=== PATIENT | female | born 1975 | race Two or more races ===

== ENCOUNTER 2017-10-21 08:00 | Inpatient (IN) | payer BC, OTHER ==
[2017-10-19 16:39] VITALS: BMI 22.6
[2017-10-22] MEDS ORDERED: SUCCINYLCHOLINE CHLORIDE 200 MG/10 ML VIAL ONE (07:12)
[2017-10-22] MEDS ORDERED: LIDOCAINE HCL/PF 2% SDV 5ML VIAL ONE (07:12)
[2017-10-22] MEDS ORDERED: PROPOFOL 20 ML ONE ×2 (07:12)
[2017-10-22] MEDS ORDERED: ROCURONIUM BROMIDE 50 MG/5 ML VIAL ONE (07:12)
[2017-10-22] MEDS ORDERED: DEXAMETHASONE SOD PHOSPHATE 4 MG/1 ML VIAL ONE (07:12)
[2017-10-22] MEDS ORDERED: ROPIVACAINE HCL 0.5% 30ML VIAL ONE (07:14)
[2017-10-22] MEDS ORDERED: MIDAZOLAM HCL 2 MG/2 ML SINGLE DOSE VIAL ONE ×2 (07:14)
[2017-10-22] MEDS ORDERED: VASOPRESSIN 20 UNITS/ML VIAL IV ONE (07:15)
[2017-10-22] MEDS ORDERED: DEXAMETHASONE SOD PHOSPHATE/PF 10 MG/ML SDV ONE (07:16)
[2017-10-22] MEDS ORDERED: oxyCODONE HCL 5 MG TABLET PO PRN ×3 (07:59→13:32)
[2017-10-22] MEDS ORDERED: DESFLURANE GAS 240 ML BOTTLE IH ONE (08:12)
[2017-10-22] MEDS ORDERED: ACETAMINOPHEN INJECTION 100 ML IVPB ONE (08:13)
--- NOTE | 2017-10-22 08:13 | HP ---
History & Physical Update - History History: No Change - Physical Physical: No Change - Assessment Assessment: No Change - Plan Plan: No Change
--- NOTE | 2017-10-22 08:14 | OP ---
Operative Note - Note: Operative Date: 10/22/17 Pre-Operative Diagnosis: Leiomyomatous Uterus. Ovarian Cyst Post-Operative Diagnosis: Same as Pre-op Surgeon: Lakeshia Arenas [employer] Special [employer] Teacher: Josefa Cisneros Anesthesia: General Operative Report Dictated: Yes
[2017-10-22] MEDS ORDERED: DEXTROSE 5%-LACTATED RINGERS 1,000 ML IV SCH (08:15)
[2017-10-22] MEDS ORDERED: ceFAZolin SODIUM 1 GM VIAL IVPB ONE (08:36)
[2017-10-22] MEDS ORDERED: GLYCOPYRROLATE 0.2 MG/1 ML VIAL ONE (09:07)
[2017-10-22] MEDS ORDERED: NEOSTIGMINE METHYLSULFATE 0.5 MG/ML - 10 ML MDV ONE (09:07)
[2017-10-22] MEDS ORDERED: PROMETHAZINE HCL 25 MG/1 ML VIAL IVPB PRN (09:49)
[2017-10-22] MEDS ORDERED: ONDANSETRON 4 MG/2 ML VIAL IVPUSH PRN ×2 (09:49)
[2017-10-22] MEDS ORDERED: PROMETHAZINE HCL 25 MG/1 ML VIAL IVPUSH PRN (09:49)
[2017-10-22] MEDS ORDERED: HYDROmorphone *PCA* 10MG/50ML DISP.SYRIN PCA SCH (10:00)
[2017-10-22] MEDS ORDERED: LACTATED RINGERS SOLUTION 1,000 ML IV SCH (10:00)
[2017-10-22] MEDS ORDERED: HYDROmorphone *PCA* 10MG/50ML DISP.SYRIN PCA ONE (10:15)
--- NOTE | 2017-10-22 11:50 | OP ---
DATE OF OPERATION: 10/22/2017 PREOPERATIVE DIAGNOSES: Leiomyomatous uterus and ovarian cyst. OPERATIONS: Abdominal myomectomy and right ovarian cystectomy. POSTOPERATIVE DIAGNOSES: Leiomyomatous uterus and right ovarian cyst. SURGEON: Lakeshia Arenas MD ANESTHESIA: General. PROCEDURE: The patient was taken to the operating room, placed in supine position, and prepped and draped in the usual sterile fashion. A timeout was performed in accordance with hospital regulation. A Pfannenstiel skin incision was made with a scalpel. Cautery was then used to go through the layers of abdominal wall to fascia. The fascia was cut in the midline and cautery was then used to open the fascia in the following fashion. A Adrienne was then used to bluntly and sharply dissect the rectus muscle off the fascia. Muscle split in the midline. Peritoneal cavity was then entered and carried up and downward. With the bowels packed out of the operative field, the leiomyomatous uterus was exteriorized. Multiple myomas were seen both anteriorly and posteriorly. A pedunculated myoma was seen at the fundus. Pitressin was then infiltrated into the serosa of the uterus where myomas were located. Cautery was then used to cut onto and remove the pedunculated myoma. Posteriorly, three incisions were then made to enucleate the myomas which were approximately 3 cm in size. Myomas were submitted. Anteriorly, multiple myomas were removed with a single incision and at the fundus another incision was made and another myoma was enucleated. Approximately ten myomas were removed and incisions were then closed using in the muscle intramural layer 0 Vicryl suture and a V-Loc suture was then used anteriorly on the serosa. Other incisions were then closed using 0 Vicryl suture in a baseball stitch. Hemostasis was achieved. The Interceed was then placed anteriorly and posteriorly. Attention was then drawn to the right ovary where a 3-cm ovarian cyst was seen. Cautery was then used to open the cyst and cyst wall was then exteriorized and submitted to Pathology. Cauterization of the ovary was then done. Hemostasis was achieved. Abdominal cavity cleaned with clean laparotomy pads. Tourniquet had been placed in the beginning of the case and then was removed. Cauterization of the any bleeding was done. Peritoneum was then closed, after abdominal sweep done and all count was noted to be normal. Peritoneum closed using 0 Vicryl suture in continuous stitch. Muscle was approximated midline using 0 Vicryl suture. Fascia was then closed using 0 Vicryl suture in two parts. The skin was then closed using 3-0 Vicryl in subcuticular fashion. The wounds were washed and dressed. The patient tolerated the procedure well. Estimated blood loss 50 mL. LAKESHIA ARENAS M.D. [id number] MTDD
[2017-10-22] MEDS ORDERED: IBUPROFEN 800 MG/8 ML IJ IVPB ONE (13:42)
[2017-10-22] MEDS: CEFAZOLIN 1 GM PUSH 1 GM/10 ML DISP.SYRIN IVPUSH SCH (17:10)
[2017-10-23] MEDS: CEFAZOLIN 1 GM PUSH 1 GM/10 ML DISP.SYRIN IVPUSH SCH (01:23)
--- NOTE | 2017-10-23 07:33 | PN ---
Progress Note (SOAP) - Subjective Chief Complaint: Doing well - Current Medications Current Medications: Active Medications Enoxaparin Sodium (Lovenox -) 40 mg SQ DAILY CHARLETTE Fentanyl (Sublimaze Injection -) 50 mcg IVPUSH [id number] PRN PRN Reason: PAIN Hydromorphone HCl (Dilaudid Employment And Claims Aide -) 10 mg PRIMARY SCHOOL PRINCIPAL PRIMARY SCHOOL PRINCIPAL CHARLETTE PRN Reason: Protocol Stop: 10/29/17 09:50 Dextrose/Lactated Ringer's (D5-Lr -) 1,000 mls @ 125 mls/hr IV ASDIR CHARLETTE Lactated Ringer's (Lactated Ringers Solution) 1,000 mls @ 125 mls/hr IV ASDIR CHARLETTE Ibuprofen (Caldolor Injection -) 800 mg IVPB Q8H PRN PRN Reason: PAIN SCALE < 5 Last Admin: 10/22/17 13:45 Dose: 800 mg Ondansetron HCl (Zofran Injection) 4 mg IVPUSH Q4H PRN PRN Reason: NAUSEA AND/OR VOMITING Oxycodone HCl (Roxicodone -) 5 mg PO Q4H PRN PRN Reason: PAIN SCALE < 5 Oxycodone HCl (Roxicodone -) 10 mg PO Q4H PRN PRN Reason: PAIN SCALE > 6 Promethazine HCl (Phenergan Injection -) 12.5 mg IVPUSH Q6H PRN PRN Reason: NAUSEA-FOR RESCUE AFTER 15 MIN - Objective Vital Signs: Vital Signs Temperature 97.9 F 10/23/17 06:00 Pulse Rate 69 10/23/17 06:00 Respiratory Rate 18 10/23/17 06:00 Blood Pressure 112/60 10/23/17 06:00 O2 Sat by Pulse Oximetry (%) 100 10/22/17 21:00 Constitutional: Yes: Well Nourished, No Distress Cardiovascular: Yes: WNL Respiratory: Yes: WNL Gastrointestinal: Yes: WNL, Normal Bowel Sounds Breast(s): Yes: WNL Musculoskeletal: Yes: WNL Extremities: Yes: WNL Problem List - Problems (1) H/O myomectomy Code(s): Z98.890 - OTHER SPECIFIED POSTPROCEDURAL STATES Assessment/Plan SP <yomectomy POD1 Plan DC home if stable RTO 1 week
[2017-10-23 08:08] LABS: BASO % 0.5 % (0-2.0); EOS % 0.2 % (0-4.5); HEMATOCRIT 27.6 % (32.4-45.2); LYMPH % 17.3 % (8-40); MCH 25.9 pg (25.7-33.7); MCHC 32.8 g/dl (32.0-36.0); MEAN CELL VOLUME 79.1 fl (80-96); MEAN PLT VOLUME 9.8 fl (7.5-11.1); MONO % 9.3 % (3.8-10.2); NEUT % 72.7 % (42.8-82.8); PLATELET COUNT 147 K/MM3 (134-434); RBC 3.49 M/mm3 (3.60-5.2); RDW 15.9 % (11.6-15.6); WHITE BLOOD COUNT 9.5 K/mm3 (4.0-10.0)
--- NOTE | 2017-10-23 08:46 | PN ---
Progress Note (short form) - Note Progress Note: POD #1 - s/p abdominal myomectomy under general anesthesia with bilateral TAP blocks and dilaudid SPINNING DOFFER for postop pain management. VSS. Pt. doing well, sitting up comfortably in bed eating breakfast. No complaints. Good pain control. SPINNING DOFFER discontinued and oxycodone ordered as per garnett machine operator helper. No apparent anesthetic complications noted. Continue current care.
[2017-10-23 08:53] LABS: ANION GAP 5 (8-16); BLOOD UREA NITROGEN 10 mg/dL (7-18); CALCIUM 7.6 mg/dL (8.5-10.1); CHLORIDE 107 mmol/L (98-107); CO2 28 mmol/L (21-32); GLUCOSE,RANDOM 89 mg/dL (74-106); POTASSIUM 4.2 mmol/L (3.5-5.1); SODIUM 140 mmol/L (136-145)
[2017-10-23 08:55] LABS: CREATININE 0.6 mg/dL (0.55-1.02)
[2017-10-23] MEDS ORDERED: IBUPROFEN 800 MG/8 ML IJ IVPB PRN (10:00)
[2017-10-23] MEDS: ENOXAPARIN NA (PORCINE) 40 MG/0.4 ML DISP.SYRIN SQ SCH (10:02)
[2017-10-23] MEDS ORDERED: oxyCODONE HCL 5 MG TABLET PO PRN (12:00)
[2017-10-23 12:38] LABS: URINE APPEARANCE CLEAR; URINE BILIRUBIN NEGATIVE (NEGATIVE); URINE BLOOD NEGATIVE (NEGATIVE); URINE COLOR YELLOW; URINE GLUCOSE (UA) NEGATIVE (NEGATIVE); URINE KETONE NEGATIVE (NEGATIVE); URINE LEUK ESTERASE NEGATIVE (NEGATIVE); URINE NITRITE NEGATIVE (NEGATIVE); URINE PROTEIN NEGATIVE (NEGATIVE); URINE UROBILINOGEN NEGATIVE mg/dL (0.2-1.0)
[2017-10-23] MEDS ORDERED: PCA PUMP KEY 1 EACH EACH ONE ×2 (13:12→13:29)
[2017-10-23] MEDS: ACETAMINOPHEN 325 MG TABLET (FP) PO PRN ×2 (13:17→18:06)
[2017-10-23] MEDS: oxyCODONE HCL 5 MG TABLET PO PRN ×3 (13:18→22:37)
[2017-10-23] MEDS: SIMETHICONE 80 MG TAB.CHEW (FP) PO PRN ×3 (13:19→22:36)
[2017-10-23] MEDS: IBUPROFEN 600 MG TABLET (FP) PO PRN (22:37)
[2017-10-24] MEDS: IBUPROFEN 600 MG TABLET (FP) PO PRN (06:27)
[2017-10-24] MEDS: SIMETHICONE 80 MG TAB.CHEW (FP) PO PRN (06:27)
[2017-10-24] MEDS: oxyCODONE HCL 5 MG TABLET PO PRN (06:29)
[2017-10-24] MEDS: ENOXAPARIN NA (PORCINE) 40 MG/0.4 ML DISP.SYRIN SQ SCH (09:43)
[2017-10-24 09:55] VITALS: BP 121/79; PULSE 72; TEMP 97.2
--- NOTE | 2017-10-24 11:08 | DS ---
Physical Examination Vital Signs: Vital Signs Temperature 97.2 F L 10/24/17 09:54 Pulse Rate 72 10/24/17 09:54 Respiratory Rate 20 10/24/17 09:54 Blood Pressure 121/79 10/24/17 09:54 O2 Sat by Pulse Oximetry (%) 99 10/23/17 21:00 Constitutional: Yes: Well Nourished, No Distress, Calm Eyes: Yes: Conjunctiva Clear, EOM Intact HENT: Yes: Atraumatic, Normocephalic Neck: Yes: Supple, Trachea Midline Cardiovascular: Yes: Regular Rate and Rhythm Respiratory: Yes: Regular, CTA Bilaterally Gastrointestinal: Yes: Normal Bowel Sounds, Soft Extremities: Yes: WNL Edema: No Wound/Incision: Yes: Clean/Dry, Well Approximated Neurological: Yes: Alert, Oriented Psychiatric: Yes: Alert, Oriented Labs: CBC, BMP 10/23/17 06:20 10/23/17 06:20 Discharge Summary Reason For Visit: LEIOMYOMA OF UTERUS Current Active Problems H/O myomectomy (Acute) Procedures: Principal: Abdominal Myomectomy Hospital Course: Pt admitted on 10/22/17 for scheduled abdominal myomectomy. Procedure was uncomplicated (see operative report for full details of procedure). The patient underwent an uncomplicated post op course and on post op day 2 was eating regular diet, ambulating, voiding, passing flatus. Patient was discharged home in stable condition on post operative day 2. Condition: Good - Instructions Diet, Activity, Other Instructions: Dr. Lakeshia Arenas Statistician Theoretical discharge instructions Physical activity Resume your normal everyday activity as tolerated no heavy lifting or exercise until seen by your surgeon. You may walk unlimited danita of and climb stairs. You may resume driving the car when you feel safe and comfortable behind the wheel. No sexual activity as instructed by Dr. Arenas. Wound care If there are tapes on the skin under the out of bandage leave them in place. They will peel off in the next 7 to 10 days. Do Not Peel them off. You may shower the day after surgery. If there are tapes present on the skin, you may shower over them. Diet There are no dietary restrictions. Eat healthy, high-fiber foods. Drink 6 to 8 glasses of liquid each day. This will assist in keeping your bowels regular. Pain management You may take Tylenol or acetaminophen or Ibuprofen (for example, Motrin, Advil etc.) for mild pain, if any prescription pain medication is sent to your pharmacy please take for moderate to severe pain. Call Dr. Arenas for any of the following: Severe pain not relieved by medication Fever of 101 or higher Excessive bleeding or drainage on dressing Inability to urinate Call the office at [phone] for an appointment in seven days. Referrals: Lakeshia Arenas MD [Staff Physician] - Disposition: HOME - Home Medications Comprehensive Discharge Medication List: Ambulatory Orders Flexeril 10 mg 10 mg PO HS PRN 10/19/17 Ibuprofen [Motrin -] 600 mg PO QID PRN #28 tablet 10/22/17 Oxycodone HCl/Acetaminophen [Percocet 5-325 mg Tablet -] 1 tab PO Q4H #20 tablet MDD 6 10/22/17
--- NOTE | 2017-10-25 16:09 | PATH ---
Surgical Pathology Report Patient Name: HARESH OLVERA [facility]. Rec. #: [id number] /Age/Gender: 1975 (Age: 42) / F Account: [id number] Location: [facility] OBS/PENSION AGENT Taken: 10/22/2017 Received: 10/22/2017 Reported: 10/25/2017 Physicians: Lakeshia Arenas M.D. Specimen(s) Received A: LEIOMYOMAS OF UTERUS B: RIGHT OVARIAN CYST WALL Clinical History Leiomyoma of uterus, right ovarian cyst Final Diagnosis A. UTERUS, MYOMECTOMY: FRAGMENTS OF BENIGN SMOOTH MUSCLE CONSISTENT WITH LEIOMYOMA(TA). B. OVARY, RIGHT, CYST WALL, CYSTECTOMY: CONSISTENT WITH FOLLICULAR CYST. Electronically Signed Nanci Bingham M.D. Gross Description A. Received in formalin labeled "leiomyomas of uterus," is an 88 g aggregate of 10 hernandez, irregular, rubbery nodules, consistent with fibroids. The fibroids range from 1.2-3.8 cm in greatest dimension. Sectioning reveals hernandez, firm to rubbery parenchyma with whorled architecture. No areas of hemorrhage or necrosis are identified. Big Data Software Engineer sections are submitted in 6 cassettes. B. Received in formalin labeled "right ovarian cyst wall," is a 1.4 x 1.2 x 0.2 cm aggregate of hernandez pink fragments of soft tissue, possibly consistent with portions of a cyst wall. The specimen is entirely submitted in one cassette. DL/10/22/2017 saudi10/22/2017
== END 2017-10-24 12:27 | disposition home or self-care (01) | DRG 743 ==
LOC: EDSTATUS 08:00 → JSAMEDAYSX 10-22 05:04 → J3W 10-22 16:09
PROVIDERS: ADMIT Obstetrics & Gynecology; ATTEND Obstetrics & Gynecology
PROC: 0UB00ZZ Excision of Right Ovary, Open Approach (ICD-10-PCS; 2017-10-22)
PROC: 0UB90ZZ Excision of Uterus, Open Approach (ICD-10-PCS; principal; 2017-10-22 07:30)
DX: D25.9 Leiomyoma of uterus, unspecified (principal); N83.209 Unspecified ovarian cyst, unspecified side
CPT/HCPCS: 36415; 80048; 81003; 85025; 86850; 86900; 86901; 87086; 88304-TC; 88305-TC; 94010; 94760

== ENCOUNTER 2019-01-17 17:00 | Emergency (ER) | payer BC, OTHER ==
[2019-01-17 17:15] VITALS: BP 136/82; PULSE 57; TEMP 98.3; BMI 24.2
[2019-01-17] MEDS ORDERED: ACETAMINOPHEN 325 MG TABLET (FP) PO ONE (17:38)
[2019-01-17] MEDS ORDERED: ACETAMINOPHEN 325 MG TABLET (FP) ONE (17:41)
--- NOTE | 2019-01-17 18:14 | PDOC ---
History of Present Illness - General Chief Complaint: Pain Stated Complaint: PAIN Time Seen by Provider: 01/17/19 17:19 History Source: Patient Exam Limitations: No Limitations Past History - Travel Traveled outside of the country in the last 30 days: No Close contact w/someone who was outside of country & ill: No - Past Medical History Allergies/Adverse Reactions: Allergies Allergy/AdvReac Type Severity Reaction Status Date / Time ketorolac Allergy Severe Rash Verified 01/17/19 17:15 Home Medications: Ambulatory Orders Flexeril 10 mg 10 mg PO HS PRN 10/19/17 Ibuprofen [Motrin -] 600 mg PO QID PRN #28 tablet 10/22/17 Oxycodone HCl/Acetaminophen [Percocet 5-325 mg Tablet -] 1 tab PO Q4H #20 tablet MDD 6 10/22/17 Ibuprofen 600 mg PO Q6H #30 tablet 01/17/19 Anemia: Yes Asthma: No Cancer: No Cardiac Disorders: No CVA: No COPD: No CHF: No Dementia: No Diabetes: No GI Disorders: No Disorders: No HTN: No Hypercholesterolemia: No Liver Disease: No Seizures: No Thyroid Disease: No - Surgical History Abdominal Surgery: No Appendectomy: No Cardiac Surgery: No Cholecystectomy: No Lung Surgery: No Neurologic Surgery: No Orthopedic Surgery: Yes (lumbar discectomy 1997) - Immunization History Immunization Up to Date: Yes - Suicide/Smoking/Psychosocial Hx Smoking Status: No Smoking History: Never smoked Have you smoked in the past 12 months: No Number of Cigarettes Smoked Daily: 0 Information on smoking cessation initiated: No Hx Alcohol Use: No Drug/Substance Use Hx: No Substance Use Type: None Hx Substance Use Treatment: No Review of Systems - Review of Systems Able to Perform ROS?: Yes Comments:: 01/17/19 17:36 CONSTITUTIONAL: Absent: fever, chills, diaphoresis, generalized weakness, malaise, loss of appetite HEENT: Absent: rhinorrhea, nasal congestion, throat pain, throat swelling, difficulty swallowing, mouth swelling, ear pain, eye pain, visual Changes CARDIOVASCULAR: Absent: chest pain, loss of consciousness, palpitations, irregular heart rate, peripheral edema MUSCULOSKELETAL: Present: R shoulder pain Absent: myalgia, arthralgia, joint swelling SKIN: Absent: rash, itching, pallor NEUROLOGIC: Absent: headache, focal weakness or paresthesias, dizziness, unsteady gait, seizure, mental status changes, bladder or bowel incontinence PSYCHIATRIC: Absent: anxiety, depression, suicidal or homicidal ideation, hallucinations. Is the patient limited Chinese proficient: No *Physical Exam - Vital Signs Last Vital Signs Temp Pulse Resp BP Pulse Ox 98.3 F 57 L 18 136/82 99 01/17/19 17:12 01/17/19 17:12 01/17/19 17:12 01/17/19 17:12 01/17/19 17:12 - Physical Exam Comments: 01/17/19 17:39 GENERAL: Well developed, well nourished. Awake and alert. No acute distress. HEENT: Normocephalic, atraumatic. PERRLA, EOMI. No conjunctival pallor. Sclera are non- icteric. Moist mucous membranes. Oropharynx is clear. NECK: Supple. Full ROM. No JVD. Carotid pulses 2+ and symmetric, without bruits. No thyromegaly. No lymphadenopathy. MUSCULOSKELETAL TTP of the R GH joint. Pain with impingment manuvers. (-) drop arm and empty can testing. Normal range of motion at all other joints. No bony deformities or tenderness. No CVA tenderness. EXTREMITIES: No cyanosis. No clubbing. No edema. No calf tenderness. SKIN: Warm and dry. Normal capillary refill. No rashes. No jaundice. NEUROLOGICAL: Alert, awake, appropriate. Cranial nerves 2-12 intact. No deficits to light touch and temperature in face, upper extremities and lower extremities. No motor deficits in the in face, upper extremities and lower extremities. Normoreflexic in the upper and lower extremities. Normal speech. Toes are down- going bilaterally. Gait is normal without ataxia. PSYCHIATRIC: Cooperative. Good eye contact. Appropriate mood and affect. Medical Decision Making - Medical Decision Making 01/17/19 18:14 The patient is a 43-year-old female with no past medical history who presents to the ER today for right shoulder pain. The patient states that she noticed it started to bother her yesterday and the pain ramped up today. She states that she cannot pressure hair due to the pain. Denies trauma to the arm. Patient is right-hand dominant. Denies numbness and tingling to the extremity and weakness to the affected extremity. A/P: Right shoulder pain On exam pain with impingement maneuvers. Negative drop arm test and empty can test; less suspicious for rotator cuff pathology Wet read of the right shoulder x-rays negative for fracture. Patient treated with Tylenol and the ER. We'll give NSAIDs and orthopedic referral. Discharge home I discussed the physical exam findings, ancillary test results and final diagnoses with the patient. I answered all of the patient's questions. The patient was satisfied with the care received and felt comfortable with the discharge plan and treatment plan. The Patient agrees to follow up with the primary care physician/specialist within 24-72 hours. Return precautions were given. *DC/Admit/Observation/Transfer Diagnosis at time of Disposition: Shoulder impingement Qualifiers: Laterality: right Qualified Code(s): M75.41 - Impingement syndrome of right shoulder - Discharge Dispostion Disposition: HOME Condition at time of disposition: Stable Decision to Admit order: No - Referrals Referrals: Alex Young MD [Staff Physician] - - Patient Instructions Printed Discharge Instructions: Shoulder Tendinopathy Additional Instructions: Your x-ray of her shoulder shows no dislocation or fractured bones. He most likely have an impingement of the nerves and or tendons as discussed Please take Motrin 600 mg every 6 hours for the next week. Gently stretch her shoulder. Please follow up with orthopedics this week. Return to the ER for any new or worsening symptoms. - Post Discharge Activity Forms/Work/School Notes: Back to Work
== END 2019-01-17 18:20 | disposition home or self-care (01) ==
LOC: JERFT 17:00
DX: M75.41 Impingement syndrome of right shoulder (principal)
CPT/HCPCS: 73030-TC-RT-FY; 99281-25

== ENCOUNTER 2019-08-24 15:53 | Emergency (ER) | payer BC, OTHER ==
[2019-08-24 16:02] VITALS: TEMP 98; BMI 24.7
--- NOTE | 2019-08-24 16:03 | PDOC ---
Rapid Medical Evaluation Chief Complaint: Chest Pain Time Seen by Provider: 08/24/19 15:57 Medical Evaluation: Allergies Allergy/AdvReac Type Severity Reaction Status Date / Time ketorolac Allergy Severe Rash Verified 07/30/19 00:20 08/24/19 15:57 I have performed a brief in-person evaluation of this patient. The patient presents with a chief complaint of:chest pain with pressure started ~ 2 hours ago- burning. . Headache x 3 weeks ago seen and released here. , but all same symptoms reoccured today but CP is new. Has MRI scheduled Wednesday for headaches.. Also c/o hematuria yesterday Pertinent physical exam findings: I have ordered the following: Urine ordered / EKG done in triage. The patient will proceed to the ED for further evaluation. 08/24/19 15:59 Discharge Disposition - Diagnosis Headache, Chest pain - Discharge Dispostion Condition at time of disposition: Stable - Referrals - Patient Instructions - Post Discharge Activity
[2019-08-24 16:28] LABS: PH,URINE 7.5 (5.0-8.0); URINE APPEARANCE CLEAR; URINE BILIRUBIN NEGATIVE (NEGATIVE); URINE COLOR YELLOW; URINE GLUCOSE (UA) NEGATIVE (NEGATIVE); URINE KETONE NEGATIVE (NEGATIVE); URINE LEUK ESTERASE NEGATIVE (NEGATIVE); URINE NITRITE NEGATIVE (NEGATIVE); URINE PROTEIN NEGATIVE (NEGATIVE); URINE UROBILINOGEN 0.2 mg/dL (0.2-1.0)
--- NOTE | 2019-08-24 17:22 | PDOC ---
History of Present Illness - General Chief Complaint: Chest Pain Stated Complaint: CHEST PAIN Time Seen by Provider: 08/24/19 15:57 - History of Present Illness Initial Comments: 08/24/19 17:34 44 yo F PMH brain tumor s/p resection in October 2018, fibroids s/p surgery several months ago, recently diagnosed HTN one month ago, R ankle fracture 20 years ago s/p surgery, p/w chest pain. Reports episcopalian of her symptoms early this morning, first N w/o vomiting, then L sided chest pain, 6/10, initially pressure, then "plucking sensation like someone is pulling my skin", now just 5/ 10 pressure. Denies SOB, fevers/chills, constipation. Endorses HAs for the past 2 months, worse over the last two days, and diarrhea for the past 2 days. Complains of urinary frequency up to 10 times a day since her fibroid surgery. MRI planned for tomorrow. Past History - Past Medical History Allergies/Adverse Reactions: Allergies Allergy/AdvReac Type Severity Reaction Status Date / Time ketorolac Allergy Severe Rash Verified 08/24/19 16:02 Home Medications: Ambulatory Orders Amlodipine Besylate [Norvasc -] 2.5 mg PO DAILY 07/30/19 Anemia: Yes Asthma: No Cancer: No Cardiac Disorders: No CVA: No COPD: No CHF: No Dementia: No Diabetes: No GI Disorders: No Disorders: No HTN: Yes Hypercholesterolemia: No Liver Disease: No Seizures: No Thyroid Disease: No - Surgical History Abdominal Surgery: No Appendectomy: No Cardiac Surgery: No Cholecystectomy: No Lung Surgery: No Neurologic Surgery: No Orthopedic Surgery: Yes (lumbar discectomy 1997) - Immunization History Immunization Up to Date: Yes - Psycho Social/Smoking Cessation Hx Smoking Status: No Smoking History: Never smoked Have you smoked in the past 12 months: No Number of Cigarettes Smoked Daily: 0 Hx Alcohol Use: No Drug/Substance Use Hx: No Substance Use Type: None Hx Substance Use Treatment: No Review of Systems - Review of Systems Constitutional: No: Chills, Diaphoresis, Fever HEENTM: No: Recent change in vision, Double Vision, Tinnitus, Hearing Loss, Mouth Pain, Difficulty Swallowing Respiratory: No: Cough, Orthopnea, Shortness of Breath Cardiac (ROS): Yes: Chest Pain. No: Edema, Irregular Heart Rate, Lightheadedness, Palpitations, Syncope, Chest Tightness ABD/GI: Yes: Diarrhea, Nausea. No: Constipated, Vomiting : Yes: Frequency Musculoskeletal: No: Back Pain, Muscle Pain Neurological: Yes: Headache. No: Numbness, Tingling, Weakness *Physical Exam - Vital Signs Last Vital Signs Temp Pulse Resp BP Pulse Ox 98 F 75 18 171/86 H 100 08/24/19 15:54 08/24/19 15:54 08/24/19 15:54 08/24/19 15:54 08/24/19 15:54 - Physical Exam Comments: 08/24/19 17:34 Gen: well-developed, well-nourished, NAD Neuro: AAOX4, CN II-XII intact, FTN intact, EOMI, PERRLA, 5/5 strength, SILT HEENT: atraumatic, normocephalic, dry mucous membranes Neck: trachea midline, supple CV: regular rate, regular rhythm, no murmurs, rubs, or gallops Pulm: CTA b/l, no wheezing Abd: soft, non-distended, non-tender MSK: full ROM, intact pulses Extr: no edema, surgical scar on R ankle Skin: warm, dry ED Treatment Course - LABORATORY CBC & Chemistry Diagram: 08/24/19 17:30 08/24/19 17:30 - ADDITIONAL ORDERS Additional order review: Laboratory Results 08/24/19 08/24/19 16:09 16:09 Urine Color Yellow Urine Appearance Clear Urine pH 7.5 D Ur Specific [place] 1.005 L Urine Protein Negative Urine Glucose (UA) Negative Urine Ketones Negative Urine Blood Negative Urine Nitrite Negative Urine Bilirubin Negative Urine Urobilinogen 0.2 Ur Leukocyte Esterase Negative Urine HCG, Qual Negative - RADIOLOGY Radiology Studies Ordered: Category Date Time Status CHEST PA & LAT [RAD] Stat Radiology 08/24/19 17:20 Ordered Medical Decision Making - Medical Decision Making 08/24/19 17:22 ACS vs MSK pain, outpatient MRI planned for tomorrow. - CBC, CMP, Mg, trop - EKG, CXR - reglan, 1L LR - UA/UC - reassess EKG normal sinus at 67 bpm, incomplete RBBB 08/24/19 18:17 CBC, CMP, trop unconcerning. 08/24/19 19:00 Patient signed out to Dr. Johnson. Discharge - Discharge Information Problems reviewed: Yes Clinical Impression/Diagnosis: Headache Qualifiers: Headache type: unspecified Headache chronicity pattern: unspecified pattern Intractability: not intractable Qualified Code(s): R51 - Headache Chest pain Qualifiers: Chest pain type: unspecified Qualified Code(s): R07.9 - Chest pain, unspecified Condition: Stable Disposition: HOME - Follow up/Referral Referrals: Rukhsana Harding MD [Primary Care Provider] - - Patient Discharge Instructions Patient Printed Discharge Instructions: DI for Atypical Chest Pain Additional Instructions: You were seen in the ER for chest pain. Your labs returned normal. Please make sure to follow up with your primary care provider as soon as possible, in the next 3 days. Be sure to keep your MRI appointment tomorrow. Please return to the ER if you develop weakness, severe headaches, worsening chest pain, or trouble breathing. - Post Discharge Activity
[2019-08-24] MEDS ORDERED: LACTATED RINGERS SOLUTION 1,000 ML/1,000 ML INFUS.BAG IV STA (17:24)
[2019-08-24] MEDS ORDERED: METOCLOPRAMIDE HCL INJECTION 10 MG/2 ML VIAL IVPB ONE (17:24)
[2019-08-24 17:39] VITALS: BP 145/89; PULSE 72
[2019-08-24] MEDS ORDERED: METOCLOPRAMIDE HCL INJECTION 10 MG/2 ML VIAL ONE (17:41)
[2019-08-24 17:44] LABS: BASO % 0.8 % (0-2.0); EOS % 2.6 % (0-4.5); HEMATOCRIT 34.9 % (32.4-45.2); HEMOGLOBIN 11.2 GM/dL (10.7-15.3); LYMPH % 35.2 % (8-40); MCH 24.8 pg (25.7-33.7); MCHC 32.1 g/dl (32.0-36.0); MEAN CELL VOLUME 77.2 fl (80-96); MEAN PLT VOLUME 9.3 fl (7.5-11.1); MONO % 6.5 % (3.8-10.2); NEUT % 54.9 % (42.8-82.8); PLATELET COUNT 176 K/MM3 (134-434); RBC 4.52 M/mm3 (3.60-5.2); RDW 16.8 % (11.6-15.6); WHITE BLOOD COUNT 6.3 K/mm3 (4.0-10.0)
[2019-08-24 18:12] LABS: BILIRUBIN,TOTAL 0.2 mg/dL (0.2-1); BLOOD UREA NITROGEN 9.8 mg/dL (7-18); CREATININE 0.7 mg/dL (0.55-1.3); POTASSIUM 4.4 mmol/L (3.5-5.1); TOT PROT 7.2 g/dl (6.4-8.2)
[2019-08-24 18:16] LABS: PHOSPHOROUS 4.1 mg/dL (2.5-4.9)
--- NOTE | 2019-08-24 18:24 | PDOC ---
Documentation entered by Lauryn Webb SCRIBE, acting as scribe for Finesse Amado MD. Finesse Amado MD: This documentation has been prepared by the Tracey ledbetter Xhesika, SCRIBE, under my direction and personally reviewed by me in its entirety. I confirm that the documentation accurately reflects all work, treatment, procedures, and medical decision making performed by me. Attending Attestation - Resident Resident Name: Jonah Eric - ED Attending Attestation I have performed the following: I have examined & evaluated the patient, The case was reviewed & discussed with the resident, I agree w/resident's findings & plan, Exceptions are as noted - HPI HPI: 08/24/19 17:40 The patient is a 44 year old female with a significant PMH of recently dx HTN, benign scalp soft tissue mass s/p resection, fibroids s/p myomectomy who presents to the emergency department for 3 weeks of headache and atraumatic chest pressure [id number] that started while at work. Patient describes her headache as global, diffuse and throbbing. Pt notes her chest pressure is 8/ 10 in severity, constant, throbbing sensation without associated visionc hange, weakness, numbness/tinglingw/eankess, fever/chills. Pt denies any sob, palpitations or lightheadedness. Patient notes she has been seen by her PMD and neurologist for her chronic headaches and has an MRI tomorrow. Patient denies any family cardiac history. The patient denies fever, chills, cough, nausea, vomiting, diarrhea and constipation. Denies dysuria, frequency, urgency and hematuria. Social denies smoking, etoh abuse, recreational drug use Allergies: NKDA PCP: Rukhsana Posey - Physicial Exam PE: 08/24/19 17:42 GENERAL: The patient is awake, alert, and fully oriented, Nontoxic - in no acute distress. HEAD: Normocephalic, atraumatic. EYES: extraocular movements intact, sclera anicteric, conjunctiva clear. ENT: Normal voice, Moist mucous membranes. NECK: Normal range of motion, supple without lymphadenopathy, JVD, or masses. LUNGS: Breath sounds equal, clear to auscultation bilaterally. No wheezes, no crackles, no rales. HEART: Regular rate and rhythm, normal S1 and S2 without murmur, rub or gallop. ABDOMEN: Soft, nontender, normoactive bowel sounds. No guarding, no rebound. No masses. EXTREMITIES: Normal range of motion, no edema. No clubbing or cyanosis. No cords, erythema, or tenderness. NEUROLOGICAL: No facial asymmetry, Normal speech, normal gait. PSYCH: Normal mood, normal affect. SKIN: Warm, Dry, normal turgor, no rashes or lesions noted. - Medical Decision Making 08/24/19 17:25 ddx - possible migraine headache, unclear cause of cp - unlikely pancretitis, gastirits, acs will ck basic labs analgesia will reassess Heart Score/ECG Review - ECG Impressions Comment:: 08/24/19 18:30 Twelve-lead EKG was performed and reviewed by me. There is normal sinus rhythm with a normal rate. rate of 67 Incomplete rbbb There is normal R wave progression There are no ST or T wave abnormalities.
[2019-08-24] MEDS ORDERED: ACETAMINOPHEN 1000 MG/100 ML VIAL (NON FORMULARY) IVPB ONE (18:30)
[2019-08-24] MEDS ORDERED: ACETAMINOPHEN INJECTION 100 ML IVPB ONE (18:37)
--- NOTE | 2019-08-24 21:11 | PDOC ---
*Physical Exam - Vital Signs Last Vital Signs Temp Pulse Resp BP Pulse Ox 98 F 72 16 145/89 100 08/24/19 15:54 08/24/19 17:38 08/24/19 17:38 08/24/19 17:38 08/24/19 15:54 - Physical Exam Comments: PE: GENERAL: Awake, alert, and fully oriented, in no acute distress HEAD: No signs of trauma, normocephalic, atraumatic EYES: PERRLA, EOMI, sclera anicteric, conjunctiva clear ENT: Auricles normal inspection, hearing grossly normal, nares patent, oropharynx clear without exudates. Moist mucosa NECK: Normal ROM, supple, no lymphadenopathy, JVD, or masses LUNGS: No distress, speaks full sentences, clear to auscultation bilaterally HEART: Regular rate and rhythm, normal S1 and S2, no murmurs, rubs or gallops, peripheral pulses normal and equal bilaterally. ABDOMEN: Soft, nontender, normoactive bowel sounds. No guarding, no rebound. No masses EXTREMITIES : Normal inspection, Normal range of motion, no edema. No clubbing or cyanosis NEUROLOGICAL: Cranial nerves II through XII grossly intact. Normal speech, normal gait, no focal sensorimotor deficits SKIN: Warm, Dry, normal turgor, no rashes or lesions noted ED Treatment Course - LABORATORY CBC & Chemistry Diagram: 08/24/19 17:30 08/24/19 17:30 - ADDITIONAL ORDERS Additional order review: Laboratory Results 08/24/19 08/24/19 08/24/19 17:30 17:30 16:09 Sodium 140 Potassium 4.4 Chloride 108 H Carbon Dioxide 27 Anion Gap 6 L BUN 9.8 Creatinine 0.7 Est GFR (CKD-EPI)AfAm 121.27 Est GFR (CKD-EPI)NonAf 104.64 Random Glucose 90 Calcium 9.0 Phosphorus 4.1 Magnesium 2.0 Total Bilirubin 0.2 AST 14 L ALT 17 Alkaline Phosphatase 53 Creatine Kinase 82 Troponin I < 0.02 Total Protein 7.2 Albumin 4.0 Urine Color Yellow Urine Appearance Clear Urine pH 7.5 D Ur Specific [place] 1.005 L Urine Protein Negative Urine Glucose (UA) Negative Urine Ketones Negative Urine Blood Negative Urine Nitrite Negative Urine Bilirubin Negative Urine Urobilinogen 0.2 Ur Leukocyte Esterase Negative Urine HCG, Qual 08/24/19 16:09 Sodium Potassium Chloride Carbon Dioxide Anion Gap BUN Creatinine Est GFR (CKD-EPI)AfAm Est GFR (CKD-EPI)NonAf Random Glucose Calcium Phosphorus Magnesium Total Bilirubin AST ALT Alkaline Phosphatase Creatine Kinase Troponin I Total Protein Albumin Urine Color Urine Appearance Urine pH Ur Specific [place] Urine Protein Urine Glucose (UA) Urine Ketones Urine Blood Urine Nitrite Urine Bilirubin Urine Urobilinogen Ur Leukocyte Esterase Urine HCG, Qual Negative 08/24/19 17:30 RBC 4.52 MCV 77.2 L MCHC 32.1 RDW 16.8 H MPV 9.3 Neutrophils % 54.9 D Lymphocytes % 35.2 D Monocytes % 6.5 Eosinophils % 2.6 D Basophils % 0.8 - Medications Given in the ED: ED Medications Discontinued Medications Generic Name Dose Route Start Last Admin Trade Name [place]illo PRN Reason Stop Dose Admin Acetaminophen 1,000 mg 08/24/19 18:30 08/24/19 18:40 Ofirmev Injection - IVPB 08/24/19 18:31 1,000 mg ONCE ONE Administration Lactated Ringer's 1,000 ml in 1,000 mls @ 1,000 mls/hr 08/24/19 17:24 17:50 Lactated Ringers Solution IV 08/24/19 18:23 1,000 mls/hr ONCE STA Administration Metoclopramide HCl 10 mg 08/24/19 17:24 08/24/19 17:50 Reglan Injection - IVPB 08/24/19 17:25 10 mg ONCE ONE Administration Medical Decision Making - Medical Decision Making 08/24/19 22:27 44F with hx HTN, brain tumor p/w 5/10 chest pain/tightness since this AM, nausea no vomiting. Symptoms resolved with reglan, ofimev, fluids. She has an already scheduled brain MRI tomorrow morning to further evaluate the source of her headaches. Pending: CXR Discharge home --- CXR reviewed, negative for acute process. Plan for discharge home with close PCP follow up, MRI in AM. Discharge - Discharge Information Problems reviewed: Yes Clinical Impression/Diagnosis: Headache Qualifiers: Headache type: unspecified Headache chronicity pattern: unspecified pattern Intractability: not intractable Qualified Code(s): R51 - Headache Chest pain Qualifiers: Chest pain type: unspecified Qualified Code(s): R07.9 - Chest pain, unspecified Condition: Stable Disposition: HOME - Admission No - Follow up/Referral Referrals: Rukhsana Harding MD [Primary Care Provider] - - Patient Discharge Instructions Patient Printed Discharge Instructions: DI for Atypical Chest Pain Additional Instructions: You were seen in the ER for chest pain. Your labs returned normal. Please make sure to follow up with your primary care provider as soon as possible, in the next 3 days. Be sure to keep your MRI appointment tomorrow. Please return to the ER if you develop weakness, severe headaches, worsening chest pain, or trouble breathing. - Post Discharge Activity
--- NOTE | 2019-08-25 14:01 | EKG ---
Test Reason : Blood Pressure : / mmHG Vent. Rate : 067 BPM Atrial Rate : 067 BPM P-R Int : 156 ms QRS Dur : 096 ms QT Int : 396 ms P-R-T Axes : 056 069 060 degrees QTc Int : 418 ms NORMAL SINUS RHYTHM INCOMPLETE RIGHT BUNDLE BRANCH BLOCK WHEN COMPARED WITH ECG OF 19-OCT-2017 15:58, NO SIGNIFICANT CHANGE WAS FOUND Confirmed by ONEIL SAUCEDO MD ([id number]) on 08/25/2019 2:01:14 PM Referred By: Confirmed By:ONEIL SAUCEDO MD
== END 2019-08-24 21:19 | disposition home or self-care (01) ==
LOC: JER 15:53
PROC: 3E033GC Introduction of Other Therapeutic Substance into Peripheral Vein, Percutaneous Approach (ICD-10-PCS; principal; 2019-08-24)
PROC: 3E033NZ Introduction of Analgesics, Hypnotics, Sedatives into Peripheral Vein, Percutaneous Approach (ICD-10-PCS; 2019-08-24)
DX: R07.9 Chest pain, unspecified (principal); R51 Headache; I10 Essential (primary) hypertension; Z98.890 Other specified postprocedural states; Z88.6 Allergy status to analgesic agent
CPT/HCPCS: 36415; 71046-TC-FY; 80053; 81003; 82550; 83735; 84100; 84484; 84703; 85025; 93005; 93010; 99284-25; J0131

== ENCOUNTER 2021-06-12 10:35 | Emergency (ER) | payer BC, OTHER ==
[2021-06-12 11:07] VITALS: BP 153/101; PULSE 69; TEMP 98.1; BMI 25.0
[2021-06-12] MEDS ORDERED: FAMOTIDINE 20 MG/50 ML IVPB 20 MG/50 ML MG IVPB ONE ×2 (11:56→12:22)
[2021-06-12] MEDS ORDERED: SODIUM CHLORIDE 1,000 ML IV STA (11:56)
[2021-06-12] MEDS ORDERED: MAG HYDROX/AL HYDROX/SIMETH -MYLANTA- ORAL SUSPENSION PO ONE (11:56)
[2021-06-12] MEDS ORDERED: MAG HYDROX/AL HYDROX/SIMETH 30 ML UNIT-DOSE CUP ONE (12:18)
[2021-06-12 12:27] LABS: EOS % 5.2 % (0-4.5); HEMATOCRIT 37.6 % (32.4-45.2); HEMOGLOBIN 12.8 GM/dL (10.7-15.3); LYMPH % 30.9 % (8-40); MCH 27.9 pg (25.7-33.7); MEAN PLT VOLUME 8.7 fl (7.5-11.1); MONO % 7.7 % (3.8-10.2); NEUT % 55.2 % (42.8-82.8); PLATELET COUNT 156 10^3/uL (134-434); RBC 4.59 M/mm3 (3.60-5.2); RDW 15.6 % (11.6-15.6); WHITE BLOOD COUNT 4.9 K/mm3 (4.0-10.0)
[2021-06-12 12:38] LABS: URINE APPEARANCE CLEAR; URINE BILIRUBIN NEGATIVE (NEGATIVE); URINE COLOR YELLOW; URINE GLUCOSE (UA) NEGATIVE (NEGATIVE); URINE KETONE NEGATIVE (NEGATIVE); URINE LEUK ESTERASE NEGATIVE (NEGATIVE); URINE NITRITE NEGATIVE (NEGATIVE); URINE PROTEIN NEGATIVE (NEGATIVE); URINE UROBILINOGEN 0.2 mg/dL (0.2-1.0)
[2021-06-12 12:41] LABS: HCG,QUALITATIVE URINE Negative
[2021-06-12 12:49] LABS: CALCIUM 8.9 mg/dL (8.5-10.1)
[2021-06-12 12:50] LABS: ALBUMIN 3.7 g/dl (3.4-5.0); BLOOD UREA NITROGEN 9.7 mg/dL (7-18)
[2021-06-12 12:53] LABS: CREATININE 0.8 mg/dL (0.55-1.3); TOT PROT 7.2 g/dl (6.4-8.2)
[2021-06-12 13:10] LABS: BILIRUBIN,TOTAL 0.4 mg/dL (0.2-1)
[2021-06-12] MEDS ORDERED: METOCLOPRAMIDE HCL INJECTION 10 MG/2 ML VIAL IVPB ONE (14:02)
[2021-06-12] MEDS ORDERED: ACETAMINOPHEN 1000 MG/100 ML VIAL (NON FORMULARY) IVPB ONE (14:02)
[2021-06-12] MEDS ORDERED: ACETAMINOPHEN INJECTION 100 ML IVPB ONE (14:05)
[2021-06-12] MEDS ORDERED: METOCLOPRAMIDE HCL INJECTION 10 MG/2 ML VIAL ONE (14:05)
== END 2021-06-12 17:05 | disposition home or self-care (01) ==
LOC: JER 10:35 → JERFT 10:35
PROC: 3E0333Z Introduction of Anti-inflammatory into Peripheral Vein, Percutaneous Approach (ICD-10-PCS; principal; 2021-06-12)
PROC: 3E033GC Introduction of Other Therapeutic Substance into Peripheral Vein, Percutaneous Approach (ICD-10-PCS; 2021-06-12)
PROC: 3E033GC Introduction of Other Therapeutic Substance into Peripheral Vein, Percutaneous Approach (ICD-10-PCS; 2021-06-12)
PROC: 3E0337Z Introduction of Electrolytic and Water Balance Substance into Peripheral Vein, Percutaneous Approach (ICD-10-PCS; 2021-06-12)
DX: K21.9 Gastro-esophageal reflux disease without esophagitis (principal)
CPT/HCPCS: 36415; 76705-TC; 80053; 81003; 83690; 84703; 85025; 87086; 99284-25; J0131

== ENCOUNTER 2021-07-23 14:43 | Emergency (ER) | payer BC, OTHER ==
[2021-07-23 14:52] VITALS: TEMP 98.5; BMI 25.8
[2021-07-23] MEDS ORDERED: METOCLOPRAMIDE HCL INJECTION 10 MG/2 ML VIAL IVPUSH ONE (15:47)
[2021-07-23] MEDS ORDERED: SODIUM CHLORIDE 0.9% 500 ML INFUS.BAG IV ONE (15:47)
[2021-07-23] MEDS ORDERED: ACETAMINOPHEN 1000 MG/100 ML VIAL (NON FORMULARY) IVPB ONE (15:47)
[2021-07-23] MEDS ORDERED: ACETAMINOPHEN INJECTION 100 ML IVPB ONE ×2 (16:06→16:11)
[2021-07-23] MEDS ORDERED: METOCLOPRAMIDE HCL INJECTION 10 MG/2 ML VIAL ONE ×2 (16:06→16:11)
[2021-07-23 16:27] LABS: BASO % 0.8 % (0-2.0); EOS % 3.3 % (0-4.5); HEMATOCRIT 37.8 % (32.4-45.2); HEMOGLOBIN 12.9 GM/dL (10.7-15.3); LYMPH % 19.9 % (8-40); MCH 28.3 pg (25.7-33.7); MCHC 34.1 g/dl (32.0-36.0); MEAN PLT VOLUME 9.4 fl (7.5-11.1); PLATELET COUNT 162 10^3/uL (134-434); RBC 4.56 M/mm3 (3.60-5.2); RDW 15.4 % (11.6-15.6); WHITE BLOOD COUNT 6.2 K/mm3 (4.0-10.0)
[2021-07-23 16:44] LABS: CHLORIDE 105 mmol/L (98-107); SODIUM 140 mmol/L (136-145)
[2021-07-23 16:46] LABS: CALCIUM 8.8 mg/dL (8.5-10.1)
[2021-07-23 16:47] LABS: ALBUMIN 3.9 g/dl (3.4-5.0); ANION GAP 6 MMOL/L (8-16); BLOOD UREA NITROGEN 11.6 mg/dL (7-18); CO2 29 mmol/L (21-32); GLUCOSE,RANDOM 109 mg/dL (74-106)
[2021-07-23 16:50] LABS: CREATININE 0.7 mg/dL (0.55-1.3); SGOT/AST 31 U/L (15-37); SGPT/ALT 19 U/L (13-61)
[2021-07-23 16:52] LABS: BILIRUBIN,TOTAL 0.3 mg/dL (0.2-1); TOT PROT 7.4 g/dl (6.4-8.2)
[2021-07-23 16:53] LABS: ALK PHOS 70 U/L (45-117)
[2021-07-23] MEDS ORDERED: MAGNESIUM SULF 50% (8.12 MEQ/2 ML-1 GM VIAL) IVPB ONE (18:00)
[2021-07-23] MEDS ORDERED: amLODIPine BESYLATE 5 MG TABLET (FP) PO ONE (18:00)
[2021-07-23] MEDS ORDERED: amLODIPine BESYLATE 5 MG TABLET (FP) ONE (18:04)
[2021-07-23] MEDS ORDERED: MAGNESIUM 1GM/D5W - 1 GM/100 ML IVPB IVPB ONE (18:05)
[2021-07-23 18:33] LABS: PH,URINE 7.5 (5.0-8.0); URINE APPEARANCE CLEAR; URINE BILIRUBIN NEGATIVE (NEGATIVE); URINE COLOR YELLOW; URINE GLUCOSE (UA) NEGATIVE (NEGATIVE); URINE KETONE NEGATIVE (NEGATIVE); URINE LEUK ESTERASE NEGATIVE (NEGATIVE); URINE NITRITE NEGATIVE (NEGATIVE); URINE PROTEIN NEGATIVE (NEGATIVE); URINE UROBILINOGEN 0.2 mg/dL (0.2-1.0)
[2021-07-23 20:18] VITALS: BP 150/98; PULSE 67
== END 2021-07-23 20:20 | disposition home or self-care (01) ==
LOC: JER 14:43
PROC: 3E0333Z Introduction of Anti-inflammatory into Peripheral Vein, Percutaneous Approach (ICD-10-PCS; principal; 2021-07-23)
PROC: 3E033GC Introduction of Other Therapeutic Substance into Peripheral Vein, Percutaneous Approach (ICD-10-PCS; 2021-07-23)
PROC: 3E033GC Introduction of Other Therapeutic Substance into Peripheral Vein, Percutaneous Approach (ICD-10-PCS; 2021-07-23)
DX: R51.9 Headache, unspecified (principal)
CPT/HCPCS: 36415; 70450-TC; 80053; 81003; 82550; 82553; 84484; 85025; 93005; 93010; 99285-25; J0131

== ENCOUNTER 2022-03-13 15:17 | Emergency (ER) | payer BC, OTHER ==
[2022-03-13 15:25] VITALS: BP 150/100; PULSE 76; BMI 27.4
[2022-03-13 15:27] VITALS: TEMP 98
[2022-03-13 17:43] LABS: EPI CELLS 9 /uL (0-25.1); HYALINE CASTS 0 /uL (0-3.1); URINE APPEARANCE CLEAR; URINE BACTERIA 349 /uL (0-1359); URINE BILIRUBIN NEGATIVE (NEGATIVE); URINE COLOR YELLOW; URINE GLUCOSE (UA) NEGATIVE (NEGATIVE); URINE KETONE NEGATIVE (NEGATIVE); URINE LEUK ESTERASE 1+ (NEGATIVE); URINE NITRITE NEGATIVE (NEGATIVE); URINE PROTEIN NEGATIVE (NEGATIVE); URINE RBC 3 /uL (0-23.9); URINE UROBILINOGEN 0.2 mg/dL (0.2-1.0); URINE WBC 10 /uL (0-25.8)
== END 2022-03-13 18:25 | disposition home or self-care (01) ==
LOC: JER 15:17
DX: N30.00 Acute cystitis without hematuria (principal)
CPT/HCPCS: 36415; 81003; 84703; 87086; 87491; 87591; 99283-25

== ENCOUNTER 2022-04-30 04:05 | Inpatient (IN) | payer BC, OTHER ==
[2022-04-27 16:07] VITALS: BMI 27.4
[2022-04-30] MEDS ORDERED: PHENAZOPYRIDINE HCL 100 MG TABLET (FP) PO ONE (06:30)
[2022-04-30] MEDS ORDERED: CEFAZOLIN SODIUM 2 GM in DEXTROSE 5%-WATER - 100 ML IVPB ONE ×2 (07:00→10:00)
[2022-04-30] MEDS ORDERED: GABAPENTIN 300 MG CAPSULE PO ONE (07:00)
[2022-04-30] MEDS ORDERED: BUPIVACAINE HCL/PF 0.25% (2.5MG/ML) 10 ML VIAL ONE (07:06)
[2022-04-30] MEDS ORDERED: BUPIVACAINE HCL/PF 0.75% 10 ML VIAL ONE (07:06)
[2022-04-30] MEDS ORDERED: BUPIVACAINE LIPOSOME/PF (EXPAREL) 266 MG/20 ML VIAL ONE (07:07)
[2022-04-30] MEDS ORDERED: DEXAMETHASONE SOD PHOSPHATE 4 MG/1 ML VIAL ONE (07:08)
[2022-04-30] MEDS ORDERED: LIDOCAINE HCL/PF 2% SDV 5ML VIAL ONE (07:08)
[2022-04-30] MEDS ORDERED: MIDAZOLAM HCL 2 MG/2 ML SINGLE DOSE VIAL ONE ×2 (07:09)
[2022-04-30] MEDS ORDERED: PROPOFOL 20 ML ONE (07:09)
[2022-04-30] MEDS ORDERED: ROCURONIUM BROMIDE 50 MG/5 ML SYRINGE ONE (07:09)
[2022-04-30] MEDS ORDERED: ceFAZolin SODIUM 1 GM VIAL IVPB ONE (08:03)
[2022-04-30] MEDS ORDERED: NEOSTIGMINE METHYLSULFATE 0.5 MG/ML - 10 ML MDV ONE ×2 (08:54→09:09)
[2022-04-30] MEDS ORDERED: GLYCOPYRROLATE 0.2 MG/1 ML VIAL ONE (08:55)
[2022-04-30] MEDS ORDERED: oxyCODONE HCL 5 MG TABLET PO PRN ×5 (09:41→12:03)
[2022-04-30] MEDS ORDERED: ACETAMINOPHEN 1000 MG/100 ML BAG IVPB ONE (09:41)
[2022-04-30] MEDS ORDERED: ONDANSETRON 4 MG/2 ML VIAL IVPUSH PRN ×2 (09:41→10:00)
[2022-04-30] MEDS ORDERED: ACETAMINOPHEN 500 MG TABLET (FP) PO SCH ×2 (09:45→16:00)
[2022-04-30] MEDS ORDERED: LACTATED RINGERS SOLUTION 1,000 ML IV SCH (09:45)
[2022-04-30] MEDS ORDERED: FENTANYL CITRATE/PF 50 MCG/ML VIAL ONE ×3 (09:46→10:54)
[2022-04-30] MEDS: ACETAMINOPHEN 1000 MG/100 ML BAG IVPB ONE ×2 (09:50→09:55)
[2022-04-30] MEDS ORDERED: ACETAMINOPHEN INJECTION 100 ML IVPB ONE (09:55)
[2022-04-30] MEDS ORDERED: DOCUSATE SODIUM 100 MG CAPSULE (FP) PO PRN (10:00)
[2022-04-30] MEDS ORDERED: ZOLPIDEM TARTRATE 5 MG TABLET PO PRN (10:00)
[2022-04-30] MEDS ORDERED: BISACODYL 5 MG TABLET.DR (FP) PO PRN (10:00)
[2022-04-30] MEDS: LACTATED RINGERS SOLUTION 1,000 ML IV SCH (10:04)
[2022-04-30] MEDS: oxyCODONE HCL 5 MG TABLET PO PRN ×2 (13:27→21:30)
[2022-04-30] MEDS: amLODIPine BESYLATE 2.5 MG TABLET (FP) PO SCH (15:31)
[2022-04-30] MEDS ORDERED: DEXTROSE 5%-WATER - 50 ML IVPB ONE (17:18)
[2022-04-30] MEDS ORDERED: ceFAZolin SODIUM 1 GM VIAL ONE (17:18)
[2022-04-30] MEDS: CEFAZOLIN 1 GM in DEXTROSE 5%-WATER - 1 GM/50 ML IVPB IVPB SCH (17:19)
[2022-04-30] MEDS: ACETAMINOPHEN 1000 MG/100 ML BAG IVPB SCH (18:11)
[2022-04-30] MEDS: SIMETHICONE 80 MG TAB.CHEW (FP) PO PRN (21:31)
[2022-04-30 23:08] LABS: HEMATOCRIT 38.2 % (32.4-45.2); HEMOGLOBIN 13.1 GM/dL (10.7-15.3); MCH 29.4 pg (25.7-33.7); MCHC 34.2 g/dl (32.0-36.0); MEAN CELL VOLUME 85.9 fl (80-96); MEAN PLT VOLUME 9.2 fl (7.5-11.1); PLATELET COUNT 170 10^3/uL (134-434); RBC 4.45 M/mm3 (3.60-5.2); RDW 14.9 % (11.6-15.6)
[2022-04-30 23:29] LABS: CALCIUM 8.6 mg/dL (8.5-10.1)
[2022-04-30 23:32] LABS: CREATININE 0.7 mg/dL (0.55-1.3)
[2022-05-01] MEDS: ACETAMINOPHEN 1000 MG/100 ML BAG IVPB SCH ×4 (01:24→15:54)
[2022-05-01] MEDS ORDERED: ceFAZolin SODIUM 1 GM VIAL ONE (01:29)
[2022-05-01] MEDS ORDERED: DEXTROSE 5%-WATER - 50 ML IVPB ONE (01:29)
[2022-05-01] MEDS: CEFAZOLIN 1 GM in DEXTROSE 5%-WATER - 1 GM/50 ML IVPB IVPB SCH (02:05)
[2022-05-01] MEDS: ENOXAPARIN NA (PORCINE) 40 MG/0.4 ML DISP.SYRIN SQ SCH (09:33)
[2022-05-01] MEDS ORDERED: amLODIPine BESYLATE 2.5 MG TABLET (FP) PO SCH (10:00)
[2022-05-01] MEDS ORDERED: amLODIPine BESYLATE 5 MG TABLET (FP) PO SCH (10:00)
[2022-05-01] MEDS: amLODIPine BESYLATE 2.5 MG TABLET (FP) PO SCH (11:21)
[2022-05-01 11:42] LABS: HEMATOCRIT 39.9 % (32.4-45.2); HEMOGLOBIN 13.4 GM/dL (10.7-15.3); MCH 29.3 pg (25.7-33.7); MCHC 33.7 g/dl (32.0-36.0); MEAN CELL VOLUME 86.8 fl (80-96); MEAN PLT VOLUME 9.2 fl (7.5-11.1); PLATELET COUNT 174 10^3/uL (134-434); RBC 4.59 M/mm3 (3.60-5.2); RDW 14.9 % (11.6-15.6); WHITE BLOOD COUNT 10.9 K/mm3 (4.0-10.0)
[2022-05-01 11:59] LABS: CALCIUM 8.8 mg/dL (8.5-10.1)
[2022-05-01 12:03] LABS: CREATININE 0.8 mg/dL (0.55-1.3)
[2022-05-01] MEDS: LACTATED RINGERS SOLUTION 1,000 ML IV SCH (12:59)
[2022-05-01 20:23] VITALS: TEMP 98
[2022-05-01] MEDS ORDERED: ACETAMINOPHEN 500 MG TABLET (FP) PO PRN (22:00)
[2022-05-02] MEDS: oxyCODONE HCL 5 MG TABLET PO PRN (00:52)
[2022-05-02] MEDS: SIMETHICONE 80 MG TAB.CHEW (FP) PO PRN (00:52)
[2022-05-02 08:24] LABS: BASO % 0.6 % (0-2.0); EOS % 3.7 % (0-4.5); HEMATOCRIT 36.5 % (32.4-45.2); HEMOGLOBIN 12.2 GM/dL (10.7-15.3); LYMPH % 28.5 % (8-40); MCH 29.3 pg (25.7-33.7); MCHC 33.5 g/dl (32.0-36.0); MEAN CELL VOLUME 87.4 fl (80-96); MEAN PLT VOLUME 9.9 fl (7.5-11.1); MONO % 6.2 % (3.8-10.2); PLATELET COUNT 142 10^3/uL (134-434); RBC 4.18 M/mm3 (3.60-5.2); RDW 14.7 % (11.6-15.6); WHITE BLOOD COUNT 6.2 K/mm3 (4.0-10.0)
[2022-05-02] MEDS: amLODIPine BESYLATE 2.5 MG TABLET (FP) PO SCH (09:40)
[2022-05-02] MEDS: ENOXAPARIN NA (PORCINE) 40 MG/0.4 ML DISP.SYRIN SQ SCH (09:40)
[2022-05-02 09:49] VITALS: BP 128/85; PULSE 73
== END 2022-05-02 10:50 | disposition home or self-care (01) | DRG 743 ==
LOC: J2C 04:05 → J3W 11:54
PROVIDERS: ADMIT Obstetrics & Gynecology; ATTEND Obstetrics & Gynecology
PROC: 0UT70ZZ Resection of Bilateral Fallopian Tubes, Open Approach (ICD-10-PCS; 2022-04-30)
PROC: 0UB00ZZ Excision of Right Ovary, Open Approach (ICD-10-PCS; 2022-04-30)
PROC: 0UT90ZZ Resection of Uterus, Open Approach (ICD-10-PCS; principal; 2022-04-30 07:30)
DX: D25.2 Subserosal leiomyoma of uterus (principal); N83.201 Unspecified ovarian cyst, right side
CPT/HCPCS: 36415; 80048; 85025; 85027; 86850; 86900; 86901; 88302-TC; 88304-TC; 88307-TC; 94760

== ENCOUNTER 2022-08-17 15:28 | Emergency (ER) | payer BC ==
[2022-08-17 15:41] VITALS: BP 166/95; PULSE 86; RESP 18; TEMP 98; BMI 27.4
[2022-08-17 18:26] LABS: EPI CELLS 2 /uL (0-25.1); HYALINE CASTS 0 /uL (0-3.1); PH,URINE 5.5 (5.0-8.0); URINE APPEARANCE CLEAR; URINE BACTERIA 140 /uL (0-1359); URINE BILIRUBIN NEGATIVE (NEGATIVE); URINE COLOR YELLOW; URINE GLUCOSE (UA) NEGATIVE (NEGATIVE); URINE KETONE NEGATIVE (NEGATIVE); URINE LEUK ESTERASE TRACE (NEGATIVE); URINE NITRITE NEGATIVE (NEGATIVE); URINE PROTEIN NEGATIVE (NEGATIVE); URINE RBC 7 /uL (0-23.9); URINE UROBILINOGEN 0.2 mg/dL (0.2-1.0); URINE WBC 2 /uL (0-25.8)
[2022-08-17 20:31] LABS: BASO % 0.7 % (0-2.0); EOS % 2.7 % (0-4.5); HEMATOCRIT 39.2 % (32.4-45.2); HEMOGLOBIN 13.3 GM/dL (10.7-15.3); LYMPH % 34.1 % (8-40); MCH 29.1 pg (25.7-33.7); MCHC 33.8 g/dl (32.0-36.0); MEAN CELL VOLUME 86.2 fl (80-96); MEAN PLT VOLUME 9.8 fl (7.5-11.1); NEUT % 55.5 % (42.8-82.8); PLATELET COUNT 163 10^3/uL (134-434); RBC 4.55 M/mm3 (3.60-5.2); RDW 13.9 % (11.6-15.6); WHITE BLOOD COUNT 6.5 K/mm3 (4.0-10.0)
[2022-08-17 20:46] LABS: CALCIUM 9.1 mg/dL (8.5-10.1)
[2022-08-17 20:47] LABS: ALBUMIN 3.8 g/dl (3.4-5.0); BLOOD UREA NITROGEN 11.7 mg/dL (7-18)
[2022-08-17 20:50] LABS: CREATININE 0.7 mg/dL (0.55-1.3)
[2022-08-17 20:51] LABS: BILIRUBIN,TOTAL 0.3 mg/dL (0.2-1); TOT PROT 6.9 g/dl (6.4-8.2)
== END 2022-08-17 21:27 | disposition left against medical advice (07) ==
LOC: JER 15:28
DX: R10.9 Unspecified abdominal pain (principal)
CPT/HCPCS: 36415; 80053; 81003; 85025; 87086; 99283-25